=== PATIENT | male | born 1985 | race Caucasian/White ===

== ENCOUNTER 2018-04-06 10:01 | Emergency (ER) | payer OTHER ==
[2018-04-06 10:12] VITALS: BP 142/88
--- NOTE | 2018-04-06 11:03 | ED Physician Documentation ---
History of Present Illness - Stated complaint Stated Complaint: FEVER X 3 DAYS/ SWOLLEN GUMS - Chief complaint Chief Complaint: Fever - Additonal information Additional information: hx from pt 32 AD [place] male healthy no recent foreign travel to ED with fever and sore throat and myalgias for a few days now gum swelling too - possibly from hot drinks no cough no abd pain NVD Review of Systems Constitutional: reports: Fever Throat: reports: Sore throat Respiratory: denies: Cough GI: denies: Abdominal Pain, Nausea, Vomiting Endocrine: denies: Easy bruising / bleeding Immunocompromised: denies: Immunocompromised PD PAST MEDICAL HISTORY - Past Medical History Past Medical History: No - Past Surgical History Past Surgical History: Yes - Present Medications Home Medications: Ambulatory Orders Medication Instructions Recorded Confirmed Chlorhexidine Gluconate 15 ml MM Q4H #1 bottle 04/06/18 Penicillin Vk 500 mg PO Q8H 10 Days tablet 04/06/18 - Allergies Allergies/Adverse Reactions: Allergies Allergy/AdvReac Type Severity Reaction Status Date / Time No Known Drug Allergies Allergy Verified 04/06/18 10:12 - Social History Does the pt smoke?: No Smoking Status: Never smoker Does the pt drink ETOH?: Yes Does the pt have substance abuse?: No - Immunizations Immunizations are current?: Yes PD ED PE NORMAL - Vitals Vital signs reviewed: Yes - HEENT HEENT: Atraumatic, Moist mucous membranes. No: Pharynx benign (enlarged tonsils with exudate, also red swollen gums with some white patches, but no tongue palate or cheek patches to suggest thrush almost appears to be ANUG) - Neck Neck: Supple, no meningeal sign - Cardiac Cardiac: RRR - Respiratory Respiratory: No respiratory distress - Abdomen Abdomen: Soft, Non tender, No organomegaly - Derm Derm: Normal color - Neuro Neuro: Alert and oriented X 3 Results - Vitals Vitals: Vital Signs - 24 hr 04/06/18 10:11 Temperature 36.7 C Heart Rate 95 Respiratory 16 Rate Blood Pressure 142/88 H O2 Saturation 98 Oxygen O2 Source Room air - Labs Labs: Laboratory Tests 04/06/18 11:05 Group A Strep Rapid Negative PD MEDICAL DECISION MAKING - Sepsis Event Vital Signs: Vital Signs - 24 hr 04/06/18 10:11 Temperature 36.7 C Heart Rate 95 Respiratory 16 Rate Blood Pressure 142/88 H O2 Saturation 98 Oxygen O2 Source Room air Departure - Departure Disposition: 01 Home, Self Care Clinical Impression: Tonsillitis, Gingivitis Condition: Good Instructions: ED Fever Control Follow-Up: ALEJANDRO Thomas [Provider Group] Prescriptions: Chlorhexidine Gluconate 15 ml MM Q4H #1 bottle Penicillin Vk 500 mg PO Q8H 10 Days tablet Comments: The rapid strep was negative but a throat culture will also be run. Take the antibiotics and use the antibacterial mouthwash as directed Motrin and tylenol for pain and fever Follow up at [facility] in 48 hr for a recheck Return if worse
== END 2018-04-06 11:36 | disposition home or self-care (01) ==
LOC: ED 10:01
DX: J03.90 Acute tonsillitis, unspecified (principal); K05.10 Chronic gingivitis, plaque induced
CPT/HCPCS: 87070; 87430; 99283